=== PATIENT | female | born 2000 | race Caucasian/White ===

== ENCOUNTER 2018-03-09 03:21 | Emergency (ER) | payer BC ==
[2018-03-09] MEDS ORDERED: IPRATROPIUM/ALBUTEROL 3 ML DEYVIAL ONE (03:23)
[2018-03-09] MEDS ORDERED: IPRATROPIUM/ALBUTEROL 3 ML DEYVIAL IH ONE ×2 (03:31→04:48)
--- NOTE | 2018-03-09 03:39 | EDPHY ---
H & P Stated Complaint: asthma exacerbation, cough Time Seen by Provider: 03/09/18 03:30 HPI/ROS: Chief Complaint: Cough, asthma exacerbation HPI: 17-year-old female presenting with worsening cough over the last 4 days. She was diagnosed with strep throat on Sunday. Since then she has had worsening cough and wheeze. Cough is nonproductive. No fevers or chills. Is consistent with prior asthma exacerbations. Patient has been using her rescue inhalers. She says that prednisone never works for her. The only thing that works for her is Levaquin. She says that every time she has a exacerbation or doctor put on antibiotics. No nausea or vomiting. No chest pain. ROS: 10 point Review of Systems is negative except as noted in the HPI. PMH: Asthma Social History: No smoking, no alcohol, no recreational drug use Family History: non-contributory Physical Exam: Gen: Awake, Alert, No Distress HEENT: Nose: no rhinorrhea Eyes: PERRLA, EOMI Mouth: Moist mucosa Neck: Supple, no JVD Chest: nontender, course breath sounds, mild expiratory wheeze, moving good air Heart: S1, S2 normal, no murmur Abd: Soft, non-tender, no guarding Back: no CVA tenderness, no midline tenderness Ext: no edema, non-tender Skin: no rash Neuro: CN II-XII intact, Sensation grossly intact, Strength 5/5 in bilateral upper and lower extremities - Personal History Current Tetanus/Diphtheria Vaccine: Yes Current Tetanus Diphtheria and Acellular Pertussis (TDAP): Yes - Medical/Surgical History Hx Asthma: Yes Hx Chronic Respiratory Disease: No Hx Diabetes: No Hx Cardiac Disease: No Hx Renal Disease: No Hx Cirrhosis: No Hx Alcoholism: No Hx HIV/AIDS: No Hx Splenectomy or Spleen Trauma: No Other PMH: astham - Social History Smoking Status: Never smoked Constitutional: Initial Vital Signs Heart Rate 106 H 03/09/18 03:27 Respiratory Rate 20 03/09/18 03:27 Blood Pressure 100/71 03/09/18 03:27 O2 Sat (%) 97 03/09/18 03:27 O2 Delivery Mode Room Air Allergies/Adverse Reactions: No Known Allergies Allergy (Unverified 03/09/18 03:26) Home Medications: Medication Instructions Recorded Azithromycin [Zithromax] 250 mg PO DAILY #4 tab 03/09/18 predniSONE 60 mg PO DAILY #9 tab 03/09/18 Medical Decision Making - Diagnostics Imaging Results: Chest x-ray is negative per my interpretation. Imaging: I viewed and interpreted images myself ED Course/Re-evaluation: Patient still has coarse breath sounds after DuoNeb. Will repeat another DuoNeb and prednisone. Patient is improved after DuoNeb and prednisone. Symptoms consistent with acute bronchitis. She has been on prednisone for a week. Will give her azithromycin to cover atypicals. Oxygen saturations are good. Lung exam is improved. She is asking to go home and I think this is appropriate. - Data Points Medications Given: Discontinued Medications Albuterol/Ipratropium (Duoneb) 3 ml IH EDNOW ONE Stop: 03/09/18 03:32 Last Admin: 03/09/18 04:58 Dose: 3 ml Albuterol/Ipratropium (Duoneb) 3 ml IH EDNOW ONE Stop: 03/09/18 04:49 Last Admin: 03/09/18 04:00 Dose: 3 ml Prednisone (Prednisone) 60 mg PO EDNOW ONE Stop: 03/09/18 04:48 Last Admin: 03/09/18 04:58 Dose: 60 mg Departure - Departure Disposition: Home, Routine, Self-Care Clinical Impression: Acute bronchitis Condition: Fair Instructions: Acute Bronchitis (ED) Additional Instructions: Please take your full course of antibiotics. Please take your full course of steroids. Follow up with your primary care physician in 3-4 days for re-evaluation. Return to the emergency department for increasing shortness of breath, cough, fevers, chills, or any other concerns. Referrals: NONE *PRIMARY CARE P,. [Primary Care Provider] - As per Instructions Prescriptions: Azithromycin [Zithromax] 250 mg PO DAILY #4 tab predniSONE 60 mg PO DAILY #9 tab
[2018-03-09] MEDS ORDERED: predniSONE 20 MG TAB PO ONE (04:47)
[2018-03-09] MEDS ORDERED: AZITHROMYCIN 250 MG TAB PO ONE (06:18)
[2018-03-09 06:37] VITALS: BP 119/71
== END 2018-03-09 06:37 | disposition home or self-care (01) ==
DX: J20.9 Acute bronchitis, unspecified (principal); J45.909 Unspecified asthma, uncomplicated
CPT/HCPCS: J7512